=== PATIENT | female | born 1980 | race African-American/Black ===

== ENCOUNTER 2021-05-13 09:55 | Emergency (ER) | payer BC ==
[2021-05-13] MEDS ORDERED: Bacitracin 1 PK ONE (10:40)
[2021-05-13] MEDS ORDERED: Ketorolac Tromethamine 30 MG/ML VIAL ONE (10:40)
== END 2021-05-13 11:04 | disposition home or self-care (01) ==
LOC: ERS 09:55
DX: S00.03XA Contusion of scalp, initial encounter (principal); G43.909 Migraine, unspecified, not intractable, without status migrainosus; Z79.899 Other long term (current) drug therapy; W22.8XXA Striking against or struck by other objects, initial encounter
CPT/HCPCS: 96372; 99283; J1885

== ENCOUNTER 2021-08-03 23:32 | Emergency (ER) | payer BC | END 2021-08-04 02:17 | disposition home or self-care (01) | LOC: ERS 23:32 | DX: R00.2 Palpitations (principal); F19.10 Other psychoactive substance abuse, uncomplicated | CPT/HCPCS: 93005 ==